=== PATIENT | male | born 1980 | race Caucasian/White ===

== ENCOUNTER 2017-01-13 19:08 | Emergency (ER) | payer OTHER ==
[~2017-01-13] VITALS: Ht 175.3 cm; Wt 110.7 kg
[2017-01-13 19:12] VITALS: TEMP 36.6; Ht 175.3 cm; Wt 110.7 kg
[2017-01-13] MEDS ORDERED: ALBUT/IPRATROP 3MG/0.5MG NEB 3 ML VIAL INH STA (19:24)
--- NOTE | 2017-01-13 19:38 | DIAGNOSTIC IMAGING REPORT ---
CHEST 2 VIEWS ROUTINE CLINICAL HISTORY: Productive cough, wheezing COMPARISON STUDY: No previous studies for comparison. FINDINGS: The bones soft tissues and hemidiaphragms are normal. The cardiomediastinal silhouette is normal. The lungs are clear. The pulmonary vasculature is normal. IMPRESSION: Negative chest. Electronically signed by: Taz Brandt M.D. 01/13/2017 7:37 PM Dictated Date/Time: 01/13/2017 7:36 PM
[2017-01-13] MEDS ORDERED: ALBUTEROL HFA 8 GM INHALER INH STA (20:03)
[2017-01-13 20:14] VITALS: BP 127/81; PULSE 125; O2SAT 94
--- NOTE | 2017-01-13 23:01 | EMERGENCY ROOM VISIT NOTE ---
History First contact with patient: 19:14 Chief Complaint: RESPIRATORY PROBLEMS Stated Complaint: TROUBLE BREATHING-COUGHING GREEN PHLEM Nursing Triage Summary: Pt states, "I can't breathe and I have been coughing up a lot of green and yellow. My body hurts from head to toe. I've had hot flashes." Pt states sx started last night. History of Present Illness The patient is a 36 year old male who presents to the Emergency Room with complaints of productive cough, wheezing and myalgias that started this morning. The patient reports that his has been sick over the past week as well, and was just diagnosed with bronchitis and sinusitis. The patient has had chills, but has not checked his temperature at home. The patient denies any history of pneumonia or asthma. The patient does have a history of seasonal allergies and usually will get significant sinus congestion this time a year, but has not noticed the symptoms as of yet. He denies any chest tightness, back pain, nausea or diaphoresis. He rates his overall discomfort a 6 out of 10. Review of Systems 10 system review was performed and was negative except for pertinent positives and negatives as indicated in history of present illness Past Medical/Surgical History Medical Problems: (1) No significant past medical history Surgical Problems: (1) No history of previous surgery Family History Unremarkable Social History Smoking Status: Current Every Day Smoker Alcohol Use: occasionally Marital Status: Occupation Status: employed Current/Historical Medications No Active Prescriptions or Reported Meds Allergies Coded Allergies: No Known Allergies (Unverified , 01/13/17) Physical Exam Vital Signs Date Time Temp Pulse Resp B/P Pulse Ox O2 Delivery O2 Flow Rate FiO2 01/13/17 20:14 125 20 127/81 94 01/13/17 19:14 94 Room Air 01/13/17 19:12 36.6 137 20 115/66 94 Room Air Physical Exam CONSTITUTIONAL: Healthy and well nourished. Alert and oriented X 3 with positive affect. Patient does not appear in any acute distress. HEENT: Normocephalic, atraumatic. Pupils equal, round and reactive. Ears and nares are clear. OROPHARYNX: Mild posterior frontal erythema without tonsillar hypertrophy or exudates. NECK: Full active range of motion without discomfort. No nuchal rigidity. RESPIRATORY: Patient has diffuse mild expiratory wheezing, without crackles, rhonchi or stridor. CARDIOVASCULAR: Regular rate and rhythm with no murmurs, rubs or gallops. GASTROINTESTINAL: Bowel sounds present in all quadrants. Soft and nontender to palpation. MUSCULOSKELETAL: Full range of motion of all joints without discomfort. INTEGUMENTARY: No rash or other significant dermatologic conditions noted. NEUROLOGIC: No focal neurologic deficits noted. Medical Decision & Procedures ER Provider Diagnostic Interpretation: My interpretation of a two-view chest x-ray does not show any consolidations, pneumothorax or cardiac prominence. Radiologist report is as follows: CHEST 2 VIEWS ROUTINE CLINICAL HISTORY: Productive cough, wheezing COMPARISON STUDY: No previous studies for comparison. FINDINGS: The bones soft tissues and hemidiaphragms are normal. The cardiomediastinal silhouette is normal. The lungs are clear. The pulmonary vasculature is normal. IMPRESSION: Negative chest. Medications Administered Medications (Trade) Dose Ordered Sig/Xenia Route Start Time Stop Time Status Last Admin Dose Admin Albuterol/ Ipratropium (Duoneb) 3 ml NOW STAT INH 01/13/17 19:24 01/13/17 19:25 DC 01/13/17 19:43 3 ML Albuterol (Ventolin Hfa Inhaler) 2 puffs ONE STAT INH 01/13/17 20:03 01/13/17 20:05 DC 01/13/17 20:08 2 PUFFS ED Course Patient history and physical exam were performed. Nurse's notes were reviewed. Vital signs were reviewed, showing a pulse rate of 137. He is afebrile and normotensive. O2 saturation is 94% on room air. The patient was administered a unit dose DuoNeb treatment with significant reduction of his cough and wheezing on auscultation. Two-view chest x-ray was normal. The patient was advised that he likely has a viral upper respiratory infection. He was dispensed a Ventolin metered-dose inhaler with AeroChamber, and instructions for its use. He was also encouraged to take Mucinex and Robitussin for additional cough relief. Ibuprofen or Tylenol as needed for pain or fever. The patient reports that he has insurance, but does not have a PCP. He was provided contact information for the [facility] who is next on the list for unassigned outpatient follow-up. The patient was encouraged to contact their office to see if they are accepting patients, and to establish an appointment for reevaluation in the next 5-7 days if symptoms are not improving. He is welcome to return to the emergency department for any significantly worsening symptoms, developing fever or worsening shortness of breath. The patient voiced understanding of all discharge instructions, and was happy with plan of care. Impression Primary Impression: Viral upper respiratory tract infection with cough Departure Information Prescriptions No Active Prescriptions or Reported Meds Referrals No Doctor, Assigned (PCP) Patient Instructions [facility]
== END 2017-01-13 20:15 | disposition home or self-care (01) ==
LOC: C.EDB 19:10 → C.EDC 20:15
DX: J06.9 Acute upper respiratory infection, unspecified (principal); R05 Cough; J30.2 Other seasonal allergic rhinitis; F17.200 Nicotine dependence, unspecified, uncomplicated

== ENCOUNTER 2017-01-29 05:06 | Emergency (ER) | payer OTHER ==
[~2017-01-29] VITALS: Ht 170.2 cm; Wt 109.0 kg
[2017-01-29 05:09] VITALS: TEMP 36.5; Ht 170.2 cm; Wt 109.0 kg
[2017-01-29] MEDS ORDERED: PRED20TA2 PO (05:23)
[2017-01-29] MEDS ORDERED: CLOTRIMAZOLE 1% CR 15 GM TUBE EXT ONE (05:30)
--- NOTE | 2017-01-29 05:31 | EMERGENCY ROOM VISIT NOTE ---
History First contact with patient: 05:12 Chief Complaint: FOOT PAIN Stated Complaint: BOTTOM OF FEET SWOLLEN AND HURTS History of Present Illness The patient is a 36 year old male who presents to the Emergency Room with complaints of pain to his bilateral feet that has been ongoing for the past 4 days. The patient states that he also has a rash on his abdomen for the past 2 days. He denies new detergents or soap. No known contact irritants. The patient states that his discomfort makes it uncomfortable for him to walk. He has not taken anything [id number] for his discomfort which he rates a 7/ 10. Review of Systems More than 10 systems were reviewed and otherwise negative with the exception of history of present illness. Past Medical/Surgical History Medical Problems: (1) No significant past medical history Surgical Problems: (1) No history of previous surgery Family History No pertinent family history Social History Smoking Status: Current Every Day Smoker Alcohol Use: occasionally Marital Status: Occupation Status: employed Current/Historical Medications Scheduled Prednisone (Prednisone Tab), 2 TAB PO DAILY Allergies Coded Allergies: No Known Allergies (Unverified , 01/13/17) Physical Exam Vital Signs Date Time Temp Pulse Resp B/P (MAP) Pulse Ox O2 Delivery O2 Flow Rate FiO2 01/29/17 05:09 36.5 106 20 137/99 97 Room Air Physical Exam VITALS: Vitals are noted on the nurse's note and reviewed by myself. Vital signs stable. GENERAL: Well-developed, well-nourished, white male, who is in no acute distress and resting comfortably. Patient is cooperative with the examination. HEAD: Normocephalic atraumatic. HEART: Regular rate and rhythm without murmurs gallops or rubs. LUNGS: Clear to auscultation bilaterally without wheezes, rales or rhonchi. No retractions or accessory muscle use. SKIN: The skin was with erythema of the bilateral feet worst between the toes with scant white discoloration. There is cracking of the skin between the left third and fourth toes as well as the left fourth and fifth toes. No tenderness of the plantar aspect of the foot. The patient has a nonspecific macular rash of the abdomen that blanches. Medical Decision & Procedures ED Course Physical exam and history were performed. Nursing notes and EMR were reviewed. Patient appears to have a rash of his feet most consistent with athlete's foot. Additionally the patient has a nonspecific rash on his abdomen. The patient has been seen recently in the facility for URI symptoms. The abdominal rash may be viral in nature, or possibly allergic. I will give him a very short course of prednisone for this. He will also be given injections to use Lotrimin on his feet. I do not suspect a bacterial infection, but he does have a few small cracks in the skin. He is not diabetic, and will need to follow with his primary care physician in the next few days for recheck. He was otherwise invited back to the ER with any new, worsening, or concerning symptoms. The chart was completed utilizing [employer] Speech Voice Recognition Software. Grammatical errors, random word insertions, pronoun errors, and incomplete sentences are an occasional consequence of this system due to software limitations, ambient noise, and hardware issues. Any formal questions or concerns about the content, text, or information contained within the body of this dictation should be directly addressed to the provider for clarification. . Medical Decision Differential diagnosis: Etiologies such as contact dermatitis, viral exanthem, urticaria, allergic reaction, Aldridge-Nigel syndrome, toxic epidermal necrolysis, erythema multiforme, cellulitis, scabies, HSV, varicella, zoster, eczema, staph scalded skin syndrome, fungal infection, as well as others were entertained. Impression Primary Impression: Rash and nonspecific skin eruption Additional Impression: Tinea pedis Departure Information Prescriptions Prednisone (Prednisone Tab) 20 Mg Tab 2 TAB PO DAILY for 4 Days, #8 TAB Prov: Aquiles Lua PA-C 01/29/17 Forms HOME CARE DOCUMENTATION FORM, IMPORTANT VISIT INFORMATION Patient Instructions My [facility] Additional Instructions You were seen and evaluated today on an emergency basis only. This is not a substitute for, or an effort to provide, complete comprehensive medical care. It is not possible to recognize and treat all injuries or illnesses in a single emergency department visit. For this reason it is recommended that you followup with your primary care physician on Tuesday or Tuesday for recheck of your condition. Take prednisone 40 mg daily as prescribed. Use [id number] Lotrimin ointment. Apply this 2-3 times daily, then cover with a sock. Be sure to cover the entirety of the foot including between the toes. It may take 2 or more weeks for this to be fully effective. You are welcome to return to the emergency department anytime with new, worsening, or concerning symptoms. Problem Qualifiers
[2017-01-29 06:01] VITALS: BP 136/84; PULSE 84; O2SAT 97
== END 2017-01-29 06:02 | disposition home or self-care (01) ==
LOC: C.EDB 05:07
DX: R21 Rash and other nonspecific skin eruption (principal); B35.3 Tinea pedis; F17.200 Nicotine dependence, unspecified, uncomplicated

== ENCOUNTER 2017-02-05 12:27 | Emergency (ER) | payer OTHER ==
[~2017-02-05] VITALS: Ht 167.6 cm; Wt 112.0 kg
[2017-02-05 12:29] VITALS: Ht 167.6 cm; Wt 112.0 kg
[2017-02-05] MEDS ORDERED: DEXAMETHASONE SOD INJ 10 MG/ML VIAL IV ONE (13:00)
[2017-02-05 13:24] LABS: BASO % 0.1 %; BASO ABS # 0.01 K/uL (0-0.2); COMPLETE YES; EOS % 0.7 %; IG% 0.6 %; LYMPH % 14.7 %; LYMPH ABS # 1.73 K/uL (1.2-3.4); MEAN CELL VOLUME 92.9 fL (80-100); MEAN CORPUSCULAR HEMOGLOBIN 33.1 pg (25-34); MEAN CORPUSCULAR HGB CONC 35.7 g/dl (32-36); MEAN PLATELET VOLUME 8.5 fL (7.4-10.4); MONO % 7.8 %; NEUT % 76.1 %; PLATELET COUNT 257 K/uL (130-400); RED BLOOD COUNT 4.95 M/uL (4.7-6.1); WHITE BLOOD COUNT 11.74 K/uL (4.8-10.8)
[2017-02-05 13:42] LABS: ALT/SGPT 24 U/L (12-78); AST/SGOT 16 U/L (15-37); BLOOD UREA NITROGEN 15 mg/dl (7-18); BUN/CREATININE RATIO 13.7 (10-20); CALCIUM 8.8 mg/dl (8.5-10.1); CARBON DIOXIDE 28 mmol/L (21-32); CHLORIDE 104 mmol/L (98-107); GLUCOSE 86 mg/dl (70-99); SODIUM 139 mmol/L (136-145)
[2017-02-05 13:45] LABS: ALKALINE PHOSPHATASE 93 U/L (45-117)
[2017-02-05] MEDS ORDERED: CLOTCRE TOP (13:59)
--- NOTE | 2017-02-05 13:59 | EMERGENCY ROOM VISIT NOTE ---
History First contact with patient: 12:45 Chief Complaint: RASH Stated Complaint: RASH, SWOLLEN FOOT History of Present Illness The patient is a 36 year old male who presents to the Emergency Room with complaints of worsening pain and swelling and rash on both his feet as well as on his body. The patient states that he was seen here one week ago for similar symptoms. At that time he only had a few spots on his abdomen but now he states it is on his chest abdomen back and groin region. He states it is only slightly itchy. He states his feet are slightly more swollen. He was given only a small tube of Lotrimin one week ago when he was in the emergency room and was told to use it only on his feet. He states it only lasted 2 days. He did not have money to buy [id number] antifungal. He also was prescribed steroids for 4 days. The patient admits he recently moved into a situation where multiple people are using the same shower. It is just him and his sleeping in the bed. She does not have any symptoms. The patient denies any recent URI symptoms. He does admit that he started wearing sandals into the shower. The patient denies any other new environmental exposures. Review of Systems 10 system review was performed and was negative unless stated otherwise history of present illness. Past Medical/Surgical History Medical Problems: (1) No significant past medical history Surgical Problems: (1) No history of previous surgery Social History Smoking Status: Current Every Day Smoker Alcohol Use: occasionally Marital Status: Occupation Status: employed Current/Historical Medications No Active Prescriptions or Reported Meds Allergies Coded Allergies: No Known Allergies (Unverified , 02/05/17) Physical Exam Vital Signs Date Time Temp Pulse Resp B/P (MAP) Pulse Ox O2 Delivery O2 Flow Rate FiO2 02/05/17 12:29 36.6 102 18 155/104 98 Room Air Physical Exam GENERAL: 36-year-old white male appears in no acute distress. MENTAL STATUS: Alert and oriented 3. NECK: Supple, no lymphadenopathy noted. No carotid bruits noted. LUNGS: Clear auscultation without wheezes rales or rhonchi. CARDIAC: Regular rate and rhythm without murmur. Pulses is full and equal throughout. SKIN: The patient has erythematous scaly patches over his entire trunk region and groin. There are a few lesions with central clearing. The areas are more concentrated in the axillary and groin region. BILATERAL FEET: The patient has erythema in a moccasin type distribution to both feet with a few dry scaly regions and tenderness to palpation over the plantar aspect of the feet. Between the right second and third digits as well as the third and fourth digits there is some maceration noted. Remainder of a digital spaces are clear. Medical Decision & Procedures Laboratory Results 02/05/17 13:10 Red Blood Count 4.95, Mean Corpuscular Volume 92.9, Mean Corpuscular Hemoglobin 33.1, Mean Corpuscular Hemoglobin Concent 35.7, Mean Platelet Volume 8.5, Neutrophils (%) (Auto) 76.1, Lymphocytes (%) (Auto) 14.7, Monocytes (%) (Auto) 7.8, Eosinophils (%) (Auto) 0.7, Basophils (%) (Auto) 0.1, Neutrophils # (Auto) 8.93, Lymphocytes # (Auto) 1.73, Monocytes # (Auto) 0.92, Eosinophils # (Auto) 0.08, Basophils # (Auto) 0.01 02/05/17 13:10 Test 02/05/17 13:10 White Blood Count 11.74 K/uL (4.8-10.8) Red Blood Count 4.95 M/uL (4.7-6.1) Hemoglobin 16.4 g/dL (14.0-18.0) Hematocrit 46.0 % (42-52) Mean Corpuscular Volume 92.9 fL (80-100) Mean Corpuscular Hemoglobin 33.1 pg (25-34) Mean Corpuscular Hemoglobin Concent 35.7 g/dl (32-36) Platelet Count 257 K/uL (130-400) Mean Platelet Volume 8.5 fL (7.4-10.4) Neutrophils (%) (Auto) 76.1 % Lymphocytes (%) (Auto) 14.7 % Monocytes (%) (Auto) 7.8 % Eosinophils (%) (Auto) 0.7 % Basophils (%) (Auto) 0.1 % Neutrophils # (Auto) 8.93 K/uL (1.4-6.5) Lymphocytes # (Auto) 1.73 K/uL (1.2-3.4) Monocytes # (Auto) 0.92 K/uL (0.11-0.59) Eosinophils # (Auto) 0.08 K/uL (0-0.5) Basophils # (Auto) 0.01 K/uL (0-0.2) RDW Standard Deviation 40.7 fL (36.4-46.3) RDW Coefficient of Variation 12.0 % (11.5-14.5) Immature Granulocyte % (Auto) 0.6 % Immature Granulocyte # (Auto) 0.07 K/uL (0.00-0.02) Anion Gap 7.0 mmol/L (3-11) Est Creatinine Clear Calc Drug Dose 110.1 ml/min Estimated GFR () 100.3 Estimated GFR (Non- 86.5 BUN/Creatinine Ratio 13.7 (10-20) Calcium Level 8.8 mg/dl (8.5-10.1) Total Bilirubin 0.6 mg/dl (0.2-1) Direct Bilirubin < 0.1 mg/dl (0-0.2) Aspartate Amino Transf (AST/SGOT) 16 U/L (15-37) Alanine Aminotransferase (ALT/SGPT) 24 U/L (12-78) Alkaline Phosphatase 93 U/L (45-117) Total Protein 7.1 gm/dl (6.4-8.2) Albumin 3.8 gm/dl (3.4-5.0) Medications Administered Medications (Trade) Dose Ordered Sig/Xenia Route Start Time Stop Time Status Last Admin Dose Admin Dexamethasone Sodium Phosphate (Decadron Inj) 10 mg NOW ONCE IV 02/05/17 13:00 02/05/17 13:01 DC 02/05/17 13:32 10 MG ED Course The patient was evaluated. IV access was obtained. CBC and differential and renal profile as well as LFTs were obtained in case the patient will need oral antifungals in the future. The patient was given Decadron 10 mg IV. Labs are reviewed. The patient's white count was only slightly elevated. LFTs were normal. The patient was informed of the findings. The patient also informed me that he has an appointment with Dr. Rosales on Tuesday to get established as a patient under his care. The patient was discharged home in stable condition. Medical Decision The patient presented with similar symptoms but worsening since his last ER visit 1 week ago. The patient did not have adequate treatment for his fungal infection therefore he has worsening of his symptoms. Impression Primary Impression: Tinea Departure Information Dispostion Home / Self-Care Condition GOOD Prescriptions Clotrimazole W/ Betamethasone (LOTRISONE) 1 Cre Cre 1 APPLN TOP AMPM for 14 Days, #45 GM 3 Refills Prov: Radha Brandt PA-C 02/05/17 Referrals Barry Rosales M.D. (PCP) Forms HOME CARE DOCUMENTATION FORM, IMPORTANT VISIT INFORMATION, WORK / SCHOOL INSTRUCTIONS Patient Instructions ED Infec Skin Fungal Tinea, My [facility] Additional Instructions Keep areas is cool and dry as possible. Wear sandals to keep feet well aerated. Wash bedding in hot water every 2 days to prevent your from getting infected or for reinfection of yourself. Wear sandals or flip-flops into the shower. Apply Lotrisone as directed to all affected body parts for 2 weeks. Ibuprofen as needed for pain. Take tramadol as needed for more severe pain. Follow-up with your family physician in 2 weeks for reevaluation to see if you need continued topical treatment or oral medication.
[2017-02-05] MEDS ORDERED: TRAMADOL HCL 50 MG TAB PO STA (14:10)
[2017-02-05] MEDS ORDERED: TRAM-10 PO (14:13)
[2017-02-05 14:16] VITALS: BP 145/89; PULSE 88; TEMP 36.6; O2SAT 98
== END 2017-02-05 14:17 | disposition home or self-care (01) ==
LOC: C.EDB 12:28 → C.EDC 14:17
DX: B35.9 Dermatophytosis, unspecified (principal); F17.200 Nicotine dependence, unspecified, uncomplicated

== ENCOUNTER → 2017-03-04 | Outpatient (CLI) | payer OTHER ==
[~2017-03-04] MED LIST: CLOTCRE TOP; TRAM-10 PO
[2017-03-04 13:09] LABS: CHOLESTEROL/HDL RATIO 4.3
== END | disposition home or self-care (01) ==
LOC: C.LABBFT 10:07
PROVIDERS: ATTEND Internal Medicine
DX: Z13.6 Encounter for screening for cardiovascular disorders (principal)

== ENCOUNTER → 2017-03-16 | Outpatient (CLI) | payer OTHER ==
[~2017-03-16] MED LIST changes: -TRAM-10 PO
[2017-03-16 17:51] LABS: ALT/SGPT 23 U/L (12-78); BLOOD UREA NITROGEN 14 mg/dl (7-18); BUN/CREATININE RATIO 12.6 (10-20); CALCIUM 9.2 mg/dl (8.5-10.1); CARBON DIOXIDE 26 mmol/L (21-32); CHLORIDE 107 mmol/L (98-107); GLUCOSE 87 mg/dl (70-99); SODIUM 140 mmol/L (136-145)
[2017-03-16 18:02] LABS: ALB/GLOB RATIO 1.2 (0.9-2); ALKALINE PHOSPHATASE 85 U/L (45-117); AST/SGOT 18 U/L (15-37)
== END | disposition home or self-care (01) ==
LOC: C.LABBFT 12:01
PROVIDERS: ATTEND Internal Medicine
DX: E78.5 Hyperlipidemia, unspecified (principal)